=== PATIENT | female | born 1965 | race Caucasian/White ===

== ENCOUNTER 2022-12-22 07:56 | Outpatient (CLI) | payer MEDICARE ==
[2022-12-22] MEDS ORDERED: Iopamidol 370 76% 100 ML VIAL ONE (09:30)
== END 2022-12-22 07:57 | disposition home or self-care (01) ==
LOC: CSHCT 07:56
PROVIDERS: ATTEND Nurse Practitioner Family
DX: Q74.0 Other congenital malformations of upper limb(s), including shoulder girdle (principal)
CPT/HCPCS: 71260; Q9967

== ENCOUNTER 2024-03-26 12:17 | Outpatient (CLI) | payer MEDICARE | END 2024-03-26 12:18 | disposition home or self-care (01) | LOC: CSHCP 12:17 | PROVIDERS: ATTEND Internal Medicine | DX: R06.02 Shortness of breath (principal); F17.210 Nicotine dependence, cigarettes, uncomplicated | CPT/HCPCS: 71271; 94060; 94618; 94726; 94729 ==